=== PATIENT | female | born 1945 | race Caucasian/White ===

== ENCOUNTER 2020-02-20 15:40 | Inpatient (IN) | payer OTHER, MEDICARE ==
[~2020-02-20] VITALS: Ht 157.5 cm; Wt 60.5 kg
[2020-02-20 15:48] VITALS: Ht 157.5 cm; Wt 60.5 kg
[2020-02-20 18:41] LABS: BASOPHIL % 0.3 % (0-2); PLATELET COUNT 358 x10^3mcL (130-400); RED CELL DISTRIBUTION WIDTH 14.2 % (11.5-14.5)
[2020-02-20 19:03] LABS: ALBUMIN 3.5 g/dL (3.4-5.0); ALKALINE PHOSPHATASE 55 U/L (46-116); ALT/SGPT 19 U/L (14-59); AST/SGOT 18 U/L (15-37); BILIRUBIN TOTAL 0.3 mg/dL (0.20-1.00); CALCIUM 8.9 mg/dL (8.5-10.1); CARBON DIOXIDE 26.7 mmol/L (21-32); CHLORIDE SERUM 89 mmol/L (98-107); CREATININE SERUM 0.8 mg/dL (0.6-1.0); GLUCOSE SERUM 170 mg/dL (74-106); POTASSIUM SERUM 3.4 mmol/L (3.5-5.1); SODIUM SERUM 125 mmol/L (136-145)
[2020-02-20] MEDS ORDERED: LISINOPRIL-HYDR1 TA4 PO (20:10)
[2020-02-20] MEDS ORDERED: MILLIPRED5 M1 PO (20:11)
[2020-02-20] MEDS ORDERED: SYN2 (20:12)
[2020-02-20] MEDS ORDERED: GRALISE600 MG PO (20:13)
[2020-02-20] MEDS ORDERED: AMLODIPINE-VALS1 TA1 (20:13)
[2020-02-20 20:41] LABS: UA SPECIFIC GRAVITY 1.015 (1.005-1.035); microscopic required? YES; urine erythrocyte 2+ (NEGATIVE)
[2020-02-20 20:58] LABS: AMPHETAMINE QUAL UR NONE DETECTED (See below)
[2020-02-20 21:05] LABS: T3 TOTAL 0.92 ng/mL
[2020-02-20 21:06] LABS: FREE T4 1.64 ng/dL (0.76-1.46); FREE THYROXINE INDEX 3.1 ug/dL (1.4-4.5); T4(THYROXINE) 8.9 ug/dL (4.7-13.3)
[2020-02-20 21:22] LABS: CHOLESTEROL/HDL RATIO 3.2
[2020-02-20] MEDS ORDERED: LISINOPRIL-HYDR1 TA3 PO (21:39)
[2020-02-20] MEDS ORDERED: LEVOTHYROXINE0.05 M2 PO (21:39)
[2020-02-20] MEDS ORDERED: GABAPENTIN300 M4 PO (21:39)
[2020-02-20] MEDS ORDERED: AMLODIPINE BES2.5 M1 PO (21:40)
[2020-02-20 23:56] VITALS: BP 154/81
[2020-02-21 01:54] LABS: BASOPHIL % 0.6 % (0-2); PLATELET COUNT 377 x10^3mcL (130-400); RED CELL DISTRIBUTION WIDTH 13.3 % (11.5-14.5)
[2020-02-21 01:59] LABS: CALCIUM 7.9 mg/dL (8.5-10.1); CARBON DIOXIDE 27.2 mmol/L (21-32); CHLORIDE SERUM 94 mmol/L (98-107); CREATININE SERUM 0.7 mg/dL (0.6-1.0); GLUCOSE SERUM 101 mg/dL (74-106); SODIUM SERUM 126 mmol/L (136-145)
[2020-02-21 05:38] VITALS: BP 139/60
[2020-02-21 08:00] VITALS: BP 133/76
[2020-02-21 14:04] VITALS: BP 126/67
== END 2020-02-21 17:56 | disposition left against medical advice (07) | DRG 871 ==
LOC: ED 15:40 → DU 20:22
PROVIDERS: Emergency Medicine; ADMIT Internal Medicine
DX: A41.9 Sepsis, unspecified organism (principal); I21.4 Non-ST elevation (NSTEMI) myocardial infarction; N39.0 Urinary tract infection, site not specified; E87.1 Hypo-osmolality and hyponatremia; E87.6 Hypokalemia; I10 Essential (primary) hypertension; E03.9 Hypothyroidism, unspecified; G62.9 Polyneuropathy, unspecified; M19.90 Unspecified osteoarthritis, unspecified site; Z53.29 Procedure and treatment not carried out because of patient's decision for other reasons; Z68.25 Body mass index [BMI] 25.0-25.9, adult
CPT/HCPCS: 83880; 84439; 87804; G0378; J1650; J1956; J7030; U0002